=== PATIENT | male | born 1990 | race Caucasian/White ===

== ENCOUNTER 2022-05-06 10:03 | Outpatient (CLI) | payer SELFPAY ==
[2022-05-06 13:59] LABS: Albumin* 4.5 g/dL (3.3-5.0); Chloride* 106 mmol/L (96-114)
[2022-05-06 14:00] LABS: Potassium* 4.7 mmol/L (3.6-5.1); Sodium* 140 mmol/L (135-149)
[2022-05-06 14:02] LABS: Aspartate Amino Transferase* 29 U/L (12-35); Bilirubin Total* 0.7 mg/dL (0.1-1.5); Blood Urea Nitrogen* 12 mg/dL (5-24); Carbon Dioxide* 27 mmol/L (20-32); Cholesterol* 148 mg/dL (90-199); Creatinine* 0.8 mg/dL (0.5-1.5); Estimated Glomerular Filt Rate 121 ml/min; Total Protein* 7.4 g/dL (6.0-8.3)
[2022-05-06 14:03] LABS: Alanine Aminotransferase* 27 U/L (4-50); Alkaline Phosphatase* 57 U/L (40-150); Calcium* 9.4 mg/dL (8.4-10.6); Glucose* 86 mg/dL (60-115)
== END 2022-05-06 10:04 | disposition home or self-care (01) ==
PROVIDERS: PCP Family Medicine; Visit Provider Family Medicine
DX: Z00.00 Encounter for general adult medical examination without abnormal findings (principal)
CPT/HCPCS: 80053; 82465

== ENCOUNTER 2023-04-07 08:57 | Outpatient (CLI) | payer OTHER, SELFPAY | END 2023-04-07 08:58 | disposition home or self-care (01) | LOC: NFLDREF 04-09 12:53 | PROVIDERS: PCP Family Medicine; Referring Provider Family Medicine; Visit Provider Family Medicine | DX: Z00.00 Encounter for general adult medical examination without abnormal findings (principal); Z13.6 Encounter for screening for cardiovascular disorders | CPT/HCPCS: 80053; 80061 ==

== ENCOUNTER 2024-09-08 08:51 | Outpatient (CLI) | payer OTHER, SELFPAY | END 2024-09-08 08:52 | disposition home or self-care (01) | PROVIDERS: Visit Provider Emergency Medicine | DX: R74.01 Elevation of levels of liver transaminase levels (principal) | CPT/HCPCS: 80053; 80061 ==